=== PATIENT | female | born 1930 | race Caucasian/White ===

== ENCOUNTER 2019-12-02 10:59 | Emergency (ER) | payer MEDICARE, BC ==
--- NOTE | 2019-12-02 11:29 | EDM.PDOC ---
ED HPI GENERAL MEDICAL PROBLEM - General Stated Complaint: COUGH BLOOD Time Seen by Provider: 12/02/19 11:20 Source of Information: Reports: Patient History Limitations: Reports: No Limitations - History of Present Illness INITIAL COMMENTS - FREE TEXT/NARRATIVE: 89-year-old female who reports about 2:58 PM yesterday she developed a hacking cough and thought she was bringing up phlegm but noted that there was bright red blood mixed with clear phlegm. He states that she continue to have a hacking cough with bright red blood and phlegm all through the night. She states she did not get any sleep through the night secondary to this. She denies any pain. She would rate her pain as a 0/10. She does feel somewhat short of breath but she states "I always feel short of breath". No nausea or vomiting. No weakness or dizziness. No fevers or chills. She reports she has been eating and drinking normally. No malaise. No sweats. No leg swelling. The patient presented to the walk-in clinic initially and was found to have an O2 saturation of 82-83% on room air and was brought over to the emergency department for evaluation. She states she feels somewhat fatigued and tired but she feels well otherwise. No thing seems to have brought this on. Nothing really seems to make it better or worse. There are no other associated signs or symptoms. There are no other modifying factors. Onset: Other (2 to 3 PM yesterday) Duration: Constant Location: Reports: Other (No pain) Quality: Reports: Other (Not applicable) Improves with: Reports: None Worsens with: Reports: None Context: Reports: Other (As above.) Associated Symptoms: Reports: Cough, Shortness of Breath Treatments DEVELOPER ADVISOR: Reports: Other (see below) (Nothing.) - Related Data Allergies Allergy/AdvReac Type Severity Reaction Status Date / Time diphenhydramine Allergy Irritabilit Verified 12/02/19 11:49 [From Benadryl] y Sulfa (Sulfonamide Allergy Itching Verified 12/02/19 11:49 Antibiotics) Home Meds: Home Meds Acetaminophen [Arthritis Pain] 650 mg PO DAILY PRN 12/02/19 [History] Aspirin [Halfprin] 81 mg PO DAILY 12/02/19 [History] Bumetanide 1 mg PO BID 12/02/19 [History] Doxazosin Mesylate [Cardura] 4 mg PO DAILY 12/02/19 [History] Fish Oil/[place]-3 Fatty Acids [Fish Oil 1,000 MG] 1 cap PO BID 12/02/19 [History] Flaxseed/Omega3,6,9/Fatty Acid [Flax Seed Oil 1,300 mg Softgel] 1 cap PO DAILY 12/02/19 [History] Fluticasone Propionate [Flovent] 2 spray NASBOTH DAILY PRN 12/02/19 [History] Isosorbide Dinitrate 5 mg PO BID 12/02/19 [History] Losartan Potassium 50 mg PO BEDTIME 12/02/19 [History] Olopatadine [Patanol 0.1% Ophth Soln] 1 drop EYEBOTH DAILY 12/02/19 [History] Potassium Chloride 20 meq PO DAILY 12/02/19 [History] Simvastatin 10 mg PO BEDTIME 12/02/19 [History] Ubidecarenone [Co Q-10] 100 mg PO DAILY 12/02/19 [History] amLODIPine Besylate [Amlodipine Besylate] 5 mg PO DAILY 12/02/19 [History] atenoloL [Atenolol] 100 mg PO DAILY 12/02/19 [History] hydrALAZINE [Apresoline] 50 mg PO TID 12/02/19 [History] Past Medical History Cardiovascular History: Reports: Hypertension, Other (See Below) (Valvular heart disease/aortic stenosis) Respiratory History: Reports: Sleep Apnea (On CPAP) Endocrine/Metabolic History: Reports: Diabetes, Type II - Past Surgical History HEENT Surgical History: Reports: Cataract Surgery GI Surgical History: Reports: Appendectomy, Cholecystectomy Musculoskeletal Surgical History: Reports: Carpal Tunnel (Bilateral) Social & Family History - Tobacco Use Tobacco Use Status *Q: Unknown Ever Used Tobacco (Nonsmoker) - Alcohol Use Alcohol Use History: No - Living Situation & Occupation Occupation: Retired Social History Comment: Lives by herself in her own home ED ROS GENERAL - Review of Systems Review Of Systems: See Below Constitutional: Reports: Fatigue HEENT: Reports: No Symptoms (Specifically, she has had no nosebleeds.) Respiratory: Reports: Shortness of Breath, Hemoptysis Cardiovascular: Reports: No Symptoms GI/Abdominal: Reports: No Symptoms : Reports: No Symptoms Musculoskeletal: Reports: No Symptoms (No leg swelling.) Skin: Reports: No Symptoms Neurological: Reports: No Symptoms Psychiatric: Reports: No Symptoms Hematologic/Lymphatic: Reports: Other (No chronic anticoagulation.) Immunologic: Reports: No Symptoms ED EXAM, GENERAL - Physical Exam Exam: See Below Exam Limited By: No Limitations General Appearance: Alert, WD/WN, No Apparent Distress Eye Exam: Bilateral Eye: EOMI, Normal Inspection Ears: Normal External Exam, Hearing Grossly Normal Ear Exam: Bilateral Ear: Auricle Normal Nose: Normal Inspection, Normal Mucosa, No Blood Throat/Mouth: Normal Inspection, Normal Lips, Normal Oropharynx, Normal Voice, No Airway Compromise Head: Atraumatic, Normocephalic Neck: Normal Inspection, Supple, Non-Tender, Full Range of Motion Respiratory/Chest: No Respiratory Distress, No Accessory Muscle Use (Lateral he), Chest Non-Tender, Rhonchi Cardiovascular: Normal Peripheral Pulses, Regular Rate, Rhythm, No Gallop, Systolic Murmur Peripheral Pulses: 2+: Radial (L), Radial (R), Dorsalis Pedis (L), Dorsalis Pedis (R) GI/Abdominal: Normal Bowel Sounds, Soft, Non-Tender, No Mass Back Exam: Normal Inspection, Other Extremities: Normal Inspection, Normal Range of Motion, Non-Tender, No Pedal Edema, Normal Capillary Refill Neurological: Alert, Oriented, CN II-XII Intact, Normal Cognition, No Motor/Sensory Deficits Psychiatric: Normal Affect Skin Exam: Warm, Dry, Intact, Normal Color, No Rash #1 Interpretation EKG Date: 12/02/19 Time: 11:18 Rhythm: NSR Rate (Beats/Min): 64 [place]: LAD-Left [place] Deviation P-Wave: Present QRS: LBBB ST-T: Other (Consistent with LV strain) QT: Prolonged Comparison: NA - No Prior EKG Course - Vital Signs Last Recorded V/S: Last Vital Signs Temp 36.5 C 12/02/19 15:40 Pulse 108 H 12/02/19 15:40 Resp 20 12/02/19 15:40 BP 101/76 12/02/19 15:40 Pulse Ox 96 12/02/19 15:40 - Orders/Labs/Meds Orders: Active Orders 24 hr Category Date Time Status EKG Documentation Completion [RC] ASDIRECTED Care 12/02/19 11:44 Active Chest 2V [CR] Stat Exams 12/02/19 11:43 Taken CULTURE URINE [RM] Stat Lab 12/02/19 13:50 Received Sodium Chloride 0.9% [Saline Flush] Med 12/02/19 11:43 Active 10 ml FLUSH ASDIRECTED PRN Peripheral IV Insertion Adult [OM.PC] Routine Oth 12/02/19 11:43 Ordered EKG 12 Lead [EK] Routine Ther 12/02/19 11:43 Ordered Medication Orders Sodium Chloride (Saline Flush) 10 ml FLUSH ASDIRECTED PRN PRN Reason: Keep Vein Open Last Admin: 12/02/19 14:55 Dose: 10 ml Documented by: Admin: 12/02/19 11:54 Dose: 10 ml Documented by: YOAV Labs: Laboratory Tests 12/02/19 12/02/19 12/02/19 Range/Units 11:55 11:55 11:55 WBC 6.7 (4.5-12.0) X10-3/uL RBC 2.65 L (3.23-5.20) x10(6)uL Hgb 8.4 L (11.5-15.5) g/dL Hct 24.6 L (30.0-51.3) % MCV 92.7 (80-96) fL MCH 31.7 (27.7-33.6) pg MCHC 34.2 (32.2-35.4) g/dL RDW 12.9 (11.5-15.5) % Plt Count 170 (125-369) X10(3)uL MPV 7.4 (7.4-10.4) fL Neut % (Auto) 68.5 (46-82) % Lymph % (Auto) 17.1 (13-37) % [place] % (Auto) 14.1 H (4-12) % Eos % (Auto) 0 L (1.0-5.0) % Baso % (Auto) 0 (0-2) % Neut # (Auto) 4.5 (1.6-8.3) # Lymph # (Auto) 1.2 (0.6-5.0) # [place] # (Auto) 1.0 (0.0-1.3) # Eos # (Auto) 0.0 (0.0-0.8) # Baso # (Auto) 0.0 (0.0-0.2) # PT 10.5 (9.0-11.1) sec INR 0.97 L (1.00-1.24) APTT 34.1 H (24.4-33.2) SECONDS POC VBG pH (7.32-7.43) pH Units POC VBG pCO2 (41-51) mmHg POC VBG HCO3 (21-29) mmol/L VBG Base Excess (-2-3) mmol/L O2 Delivery Device Sodium 136 (135-145) mmol/L Potassium 3.6 (3.5-5.3) mmol/L Chloride 94 L (100-110) mmol/L Carbon Dioxide 32 (21-32) mmol/L BUN 26 H (7-18) mg/dL Creatinine 1.9 H (0.55-1.02) mg/dL Est Cr Clr Drug Dosing 14.70 mL/min Estimated GFR (MDRD) 25 L (>60) BUN/Creatinine Ratio 13.7 (9-20) Glucose 112 (80-116) mg/dL Calcium 9.0 (8.6-10.2) mg/dL Total Bilirubin 0.5 (0.1-1.3) mg/dL AST 25 (5-25) IU/L ALT 23 (12-36) U/L Alkaline Phosphatase 57 (56-112) IU/L Troponin I (4.0-60.3) pg/mL Total Protein 7.1 (6.0-8.0) g/dL Albumin 3.1 L (3.2-4.6) g/dL Globulin 4.0 g/dL Albumin/Globulin Ratio 0.8 Urine Color (YELLOW) Urine Appearance (CLEAR) Urine pH (5.0-6.5) Ur Specific [place] (1.010-1.025) Urine Protein (NEGATIVE) mg/dL Urine Glucose (UA) (NORMAL) mg/dL Urine Ketones (NEGATIVE) mg/dL Urine Occult Blood (NEGATIVE) Urine Nitrite (NEGATIVE) Urine Bilirubin (NEGATIVE) Urine Urobilinogen (NEGATIVE) mg/dL Ur Leukocyte Esterase (NEGATIVE) Urine RBC (0-5) Urine WBC (0-5) Ur Squamous Epith Cells (NS,R,O) Urine Bacteria (NS) SARS-CoV-2 RNA (ZIA) (NEGATIVE) 12/02/19 12/02/1912/01/20 Range/Units 11:55 11:55 13:45 WBC (4.5-12.0) X10-3/uL RBC (3.23-5.20) x10(6)uL Hgb (11.5-15.5) g/dL Hct (30.0-51.3) % MCV (80-96) fL MCH (27.7-33.6) pg MCHC (32.2-35.4) g/dL RDW (11.5-15.5) % Plt Count (125-369) X10(3)uL MPV (7.4-10.4) fL Neut % (Auto) (46-82) % Lymph % (Auto) (13-37) % [place] % (Auto) (4-12) % Eos % (Auto) (1.0-5.0) % Baso % (Auto) (0-2) % Neut # (Auto) (1.6-8.3) # Lymph # (Auto) (0.6-5.0) # [place] # (Auto) (0.0-1.3) # Eos # (Auto) (0.0-0.8) # Baso # (Auto) (0.0-0.2) # PT (9.0-11.1) sec INR (1.00-1.24) APTT (24.4-33.2) SECONDS POC VBG pH 7.52 H (7.32-7.43) pH Units POC VBG pCO2 39 L (41-51) mmHg POC VBG HCO3 31 H (21-29) mmol/L VBG Base Excess 9 H (-2-3) mmol/L O2 Delivery Device Nasal cannula Sodium (135-145) mmol/L Potassium (3.5-5.3) mmol/L Chloride (100-110) mmol/L Carbon Dioxide (21-32) mmol/L BUN (7-18) mg/dL Creatinine (0.55-1.02) mg/dL Est Cr Clr Drug Dosing mL/min Estimated GFR (MDRD) (>60) BUN/Creatinine Ratio (9-20) Glucose (80-116) mg/dL Calcium (8.6-10.2) mg/dL Total Bilirubin (0.1-1.3) mg/dL AST (5-25) IU/L ALT (12-36) U/L Alkaline Phosphatase (56-112) IU/L Troponin I 21.7 (4.0-60.3) pg/mL Total Protein (6.0-8.0) g/dL Albumin (3.2-4.6) g/dL Globulin g/dL Albumin/Globulin Ratio Urine Color Yellow (YELLOW) Urine Appearance Cloudy (CLEAR) Urine pH 6.0 (5.0-6.5) Ur Specific [place] 1.010 (1.010-1.025) Urine Protein 30 H (NEGATIVE) mg/dL Urine Glucose (UA) Normal (NORMAL) mg/dL Urine Ketones Negative (NEGATIVE) mg/dL Urine Occult Blood Large H (NEGATIVE) Urine Nitrite Negative (NEGATIVE) Urine Bilirubin Negative (NEGATIVE) Urine Urobilinogen Normal (NEGATIVE) mg/dL Ur Leukocyte Esterase Negative (NEGATIVE) Urine RBC >100 H (0-5) Urine WBC 10-20 H (0-5) Ur Squamous Epith Cells Occasional (NS,R,O) Urine Bacteria Many H (NS) SARS-CoV-2 RNA (ZIA) (NEGATIVE) 12/02/19 Range/Units 13:55 WBC (4.5-12.0) X10-3/uL RBC (3.23-5.20) x10(6)uL Hgb (11.5-15.5) g/dL Hct (30.0-51.3) % MCV (80-96) fL MCH (27.7-33.6) pg MCHC (32.2-35.4) g/dL RDW (11.5-15.5) % Plt Count (125-369) X10(3)uL MPV (7.4-10.4) fL Neut % (Auto) (46-82) % Lymph % (Auto) (13-37) % [place] % (Auto) (4-12) % Eos % (Auto) (1.0-5.0) % Baso % (Auto) (0-2) % Neut # (Auto) (1.6-8.3) # Lymph # (Auto) (0.6-5.0) # [place] # (Auto) (0.0-1.3) # Eos # (Auto) (0.0-0.8) # Baso # (Auto) (0.0-0.2) # PT (9.0-11.1) sec INR (1.00-1.24) APTT (24.4-33.2) SECONDS POC VBG pH (7.32-7.43) pH Units POC VBG pCO2 (41-51) mmHg POC VBG HCO3 (21-29) mmol/L VBG Base Excess (-2-3) mmol/L O2 Delivery Device Sodium (135-145) mmol/L Potassium (3.5-5.3) mmol/L Chloride (100-110) mmol/L Carbon Dioxide (21-32) mmol/L BUN (7-18) mg/dL Creatinine (0.55-1.02) mg/dL Est Cr Clr Drug Dosing mL/min Estimated GFR (MDRD) (>60) BUN/Creatinine Ratio (9-20) Glucose (80-116) mg/dL Calcium (8.6-10.2) mg/dL Total Bilirubin (0.1-1.3) mg/dL AST (5-25) IU/L ALT (12-36) U/L Alkaline Phosphatase (56-112) IU/L Troponin I (4.0-60.3) pg/mL Total Protein (6.0-8.0) g/dL Albumin (3.2-4.6) g/dL Globulin g/dL Albumin/Globulin Ratio Urine Color (YELLOW) Urine Appearance (CLEAR) Urine pH (5.0-6.5) Ur Specific [place] (1.010-1.025) Urine Protein (NEGATIVE) mg/dL Urine Glucose (UA) (NORMAL) mg/dL Urine Ketones (NEGATIVE) mg/dL Urine Occult Blood (NEGATIVE) Urine Nitrite (NEGATIVE) Urine Bilirubin (NEGATIVE) Urine Urobilinogen (NEGATIVE) mg/dL Ur Leukocyte Esterase (NEGATIVE) Urine RBC (0-5) Urine WBC (0-5) Ur Squamous Epith Cells (NS,R,O) Urine Bacteria (NS) SARS-CoV-2 RNA (ZIA) Positive H (NEGATIVE) Meds: Medications Generic Name Dose Route Start Last Admin Trade Name Freq PRN Reason Stop Dose Admin Sodium Chloride 10 ml 12/02/19 11:43 12/02/19 14:55 Saline Flush FLUSH 10 ml ASDIRECTED PRN Administration Keep Vein Open Discontinued Medications Generic Name Dose Route Start Last Admin Trade Name Gregq PRN Reason Stop Dose Admin Ceftriaxone Sodium 1 gm 12/02/19 14:42 12/02/19 14:51 Rocephin IVPUSH 12/02/19 14:43 1 gm ONETIME ONE Administration - Radiology Interpretation Free Text/Narrative:: Chest x-ray PA and lateral shows left lower lobe infiltrate versus infiltrate and effusion. - Re-Assessments/Exams Free Text/Narrative Re-Assessment/Exam: 12/02/19 13:15: Patient with a hemoglobin of 8.4 and chest x-ray that shows left lower lobe infiltrate versus infiltrate and effusion versus mass. With the patient's hemoptysis and her anemia with the hypoxia, she will need admission for further cares and evaluation. She will also need specially services which are not available at [facility] (pulmonary medicine and possibly interventional radiology). Therefore she will need to a facility with these specially services available. I discussed this with the patient and I also discussed it with her daughter at her request. The patient is very much interested in having this evaluated and worked up appropriately. She would be wanting to be transferred to a facility where this could be performed. She has directed me to discuss her case with the doctors at [facility] and 12/02/19 13:27: I discussed the patient's case with Dr. Lezama, a physician at [facility], he has agreed to accept the patient in transfer. They have requested that we do a rapid Covid on the patient. I have discussed this with the patient and with her daughter and they are in agreement with the plans for transfer. I did send a urine for evaluation as well. 12/02/19 14:40: We are awaiting the results of the rapid Covid and the patient has remained vitally stable. She has been maintaining an O2 saturation of he 5% or greater on 1 L/m via nasal cannula. Her urinalysis came back with evidence of infection but there was also greater than 100 red blood cells per high power field. The urine will be sent for culture and I will give the patient Rocephin 1 g IV. The patient does have a bed available at [facility]. The patient will be transferred via [facility] ambulance service to [facility] for direct admission. 12/02/19 15:25: Patient's Covid 19 test was positive. We have made all the appropriate personnel including [facility] aware of this positive test. I have discussed this with the patient and with the patient's daughter. The patient is still being transferred to [facility] for direct admission. Departure - Departure Time of Disposition: 15:35 Disposition: DC/Tfer to [facility] 02 Condition: Fair (Guarded) Clinical Impression: Left lower lobe consolidation, Hemoptysis, COVID-19 virus detected Anemia Qualifiers: Anemia type: unspecified type Qualified Code(s): D64.9 - Anemia, unspecified UTI (urinary tract infection) Qualifiers: Urinary tract infection type: site unspecified Hematuria presence: with hematuria Qualified Code(s): N39.0 - Urinary tract infection, site not specified - Discharge Information Referrals: Aisha Yost [employer] RECEIVER [Primary Care Provider] - Sepsis Event Note (ED) - Evaluation Sepsis Screening Result: No Definite Risk - Focused Exam Vital Signs: Vital Signs Temp Pulse Resp BP Pulse Ox 12/02/19 15:40 36.5 C 108 H 20 101/76 96 12/02/19 11:15 36.7 C 66 16 136/47 L 98 - My Orders Last 24 Hours: My Active Orders 12/02/19 11:43 Chest 2V [CR] Stat Sodium Chloride 0.9% [Saline Flush] 10 ml FLUSH ASDIRECTED PRN Peripheral IV Insertion Adult [OM.PC] Routine EKG 12 Lead [EK] Routine 12/02/19 11:44 EKG Documentation Completion [RC] ASDIRECTED 12/02/19 13:50 CULTURE URINE [RM] Stat - Assessment/Plan Last 24 Hours: My Active Orders 12/02/19 11:43 Chest 2V [CR] Stat Sodium Chloride 0.9% [Saline Flush] 10 ml FLUSH ASDIRECTED PRN Peripheral IV Insertion Adult [OM.PC] Routine EKG 12 Lead [EK] Routine 12/02/19 11:44 EKG Documentation Completion [RC] ASDIRECTED 12/02/19 13:50 CULTURE URINE [RM] Stat
[2019-12-02] MEDS: Sodium Chloride 0.9% 10 ML Syringe FLUSH PRN ×2 (11:54→14:55)
[2019-12-02 12:07] LABS: BASE EXCESS VENOUS,POC 9 mmol/L (-2-3); HCO3 VENOUS,POC 31 mmol/L (21-29); PCO2 VENOUS,POC 39 mmHg (41-51); PH VENOUS,POC 7.52 pH Units (7.32-7.43)
[2019-12-02] MEDS ORDERED: cefTRIAXone 2 GM Vial IVPUSH ONE (14:42)
--- NOTE | 2019-12-05 11:37 | CR ---
INDICATION: Hemoptysis with low oxygen saturation. CHEST TWO VIEWS: PA and lateral views of the chest were obtained 12/02/19 and compared with 06/03/18, now revealing pleuroparenchymal changes at the left mid to lower lung field with a moderate size pleural effusion. Findings are felt to be compatible with pneumonia and pleuritis at the left lung base. There is also blunting of the right costophrenic angle raising question of some minimal pneumonia and pleuritis in that area. The heart is enlarged with LVE. The aorta is tortuous and calcified. Somewhat diminished bone density suggests osteoporosis. Bridging hyperostotic changes noted in the mid to lower thoracic spine. Slightly accentuated dorsal kyphosis is also noted. Somewhat flattened diaphragm leads with prominent AP diameter and hyperaeration suggest COPD, and appear to be either progressive or exacerbated compared with the previous study, to a mild degree. IMPRESSION: 1. Pleuroparenchymal changes at the left lower lung field which appear to be mostly in the left lower lobe and may represent pneumonia and pleuritis, although neoplasia is difficult to entirely exclude, followup recommended. 2. Blunting of the right costophrenic angle which likely represents a minimal area of scarring rather than active disease. 3. COPD. 4. ASHD with cardiomegaly. 5. 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 MTDD
== END 2019-12-02 15:35 ==
LOC: FB.ED 10:59
DX: U07.1 COVID-19 (principal); J12.89 Other viral pneumonia; N39.0 Urinary tract infection, site not specified; R31.9 Hematuria, unspecified; D64.9 Anemia, unspecified; I10 Essential (primary) hypertension; E11.9 Type 2 diabetes mellitus without complications; Z88.2 Allergy status to sulfonamides; Z88.8 Allergy status to other drugs, medicaments and biological substances; Z90.710 Acquired absence of both cervix and uterus; Z79.82 Long term (current) use of aspirin; Z90.49 Acquired absence of other specified parts of digestive tract; Z79.899 Other long term (current) drug therapy
CPT/HCPCS: 71046; 80053; 81001; 84484; 85025; 85610; 85730; 87086; 93005; 96374; 99285-25; J0696; U0002